=== PATIENT | male | born 2000 | race Caucasian/White ===

== ENCOUNTER 2018-02-04 09:59 | Inpatient (IN) | payer BC, OTHER ==
[2018-02-04 11:12] LABS: ABS Basophils 0.1 10^3/ul (0-0.2); ABS Eosinophils 0.1 10^3/ul (0-0.6); ABS Lymphocytes 1.8 10^3/ul (1.0-4.8); ABS Monocytes 0.5 10^3/ul (0-0.8); ABS Neutrophils 4.3 10^3/ul (1.5-7.7); ABS Nucleated RBC 0 10^3/ul; Eosinophil % 1.6 % (0-6); Hematocrit 44 % (42-52); Hemoglobin 15.4 g/dl (14.0-18.0); Lymphocyte % 26.3 % (25-47); Mean Corpuscular HGB Conc 35 g/dl (31-36); Mean Corpuscular Hemoglobin 28 pg (27-31); Mean Corpuscular Volume 81 fL (80-94); Mean Platelet Volume 7.8 um3 (7.4-10.4); Nucleated Red Blood Cells % 0.3; Platelet Count 219 10^3/ul (150-450); Red Cell Distribution Width 14 % (10.5-15); White Blood Count 6.8 10^3/ul (3.5-10.8)
[2018-02-04 11:30] LABS: EGFR Non-African American 85.3 (>60)
[2018-02-04 12:54] LABS: Urine Appearance Clear; Urine Blood Negative (Negative); Urine Color Yellow; Urine Ketones Negative (Negative); Urine Protein Negative (Negative); Urine Specific Gravity 1.014 (1.010-1.030); Urine Urobilinogen Negative (Negative)
[2018-02-04] MEDS ORDERED: Haloperidol TAB* 5 MG PO ONE (13:56)
[2018-02-04] MEDS ORDERED: LORazepam TAB(*) 1 MG PO ONE (13:56)
[2018-02-04] MEDS ORDERED: Haloperidol INJ IV/IM* 5 MG/ML AMP IM ONE (14:08)
[2018-02-04] MEDS ORDERED: LORazepam INJ* 2 MG/ML 1 ML VIAL IM ONE (14:08)
[2018-02-04] MEDS ORDERED: Al Hydrox/Mg Hydrox/Simet LIQ* 30 ML UDC PO PRN (15:03)
[2018-02-04] MEDS ORDERED: Acetaminophen TAB* 325 MG PO PRN (15:03)
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
[2018-02-05] MEDS: Vitamin THERAPEUTIC TAB PO SCH (11:00)
[2018-02-05] MEDS ORDERED: Haloperidol TAB* 5 MG PO ONE (12:37)
[2018-02-05] MEDS ORDERED: LORazepam TAB(*) 1 MG PO ONE (12:40)
[2018-02-05] MEDS ORDERED: Benztropine TAB* 1 MG ONE (12:43)
[2018-02-05] MEDS: Benztropine TAB* 1 MG PO SCH (12:55)
[2018-02-05] MEDS ORDERED: ARIPiprazole TAB* 5 MG PO ONE (14:45)
[2018-02-05] MEDS ORDERED: QUEtiapine TAB* 25 MG PO PRN (18:22)
[2018-02-05] MEDS ORDERED: Haloperidol TAB* 5 MG PO PRN (18:24)
[2018-02-05] MEDS ORDERED: Benztropine TAB* 1 MG PO PRN (18:26)
[2018-02-05] MEDS: LORazepam TAB(*) 1 MG PO SCH ×2 (18:29→21:12)
[2018-02-05] MEDS ORDERED: QUEtiapine TAB* 100 MG PO SCH (21:00)
[2018-02-05] MEDS: QUEtiapine TAB* 25 MG PO SCH (21:12)
[2018-02-06] MEDS: Benztropine TAB* 1 MG PO SCH ×3 (08:53→20:37)
[2018-02-06] MEDS: LORazepam TAB(*) 1 MG PO SCH ×3 (08:54→20:37)
[2018-02-06] MEDS: Vitamin THERAPEUTIC TAB PO SCH (08:54)
[2018-02-06] MEDS ORDERED: diPHENhydraMINE IV* 50 MG/ML 1 ml VIAL (BENADRYL) IM ONE ×2 (12:48→13:57)
[2018-02-06] MEDS ORDERED: diPHENhydraMINE PO* 25 MG PO ONE (12:54)
[2018-02-06] MEDS ORDERED: ARIPiprazole TAB* 5 MG PO ONE (12:57)
[2018-02-06] MEDS ORDERED: diPHENhydraMINE PO* 25 MG ONE (12:59)
[2018-02-06] MEDS ORDERED: ARIPiprazole TAB* 5 MG ONE (13:01)
[2018-02-06] MEDS ORDERED: Benzocaine/Menthol LOZ* 1 LOZENGE ONE (13:45)
--- NOTE | 2018-02-06 14:37 | PN ---
Subjective - Subjective Subjective: Psychiatric Attending Progress Note: Patient continues to exhibit bizarre behavior, disorganized thinking, odd relatedness, suspiciousness and hypervigilance. He can be verbally hostile and menacing with as associated incongruent affect. Example is yesterday late afternoon, patient put his face close to staff members face and held door to unit open, preventing staff member from closing the door to the unit. Patient exhibited hostile tone as he held door open, yet was smiling while asking the staff "why do you need to close the door?" patient developed discomfort swallowing today and involuntary movement of his jaw. He was given 25 mg of benadryl po with no real effect. subsequently I ordered benadryl 25 mg IM with good effect. dystonic symptoms abated complettely. MSE: patient did sleep 4 hours yesterday evening followed by 6 hours overnight. Patient refused HS Medications (ativan and seroquel) Today patient displays psychomotor acceleration. He is hyerverbal. He has been pacing floor while accosting people and attemting to shake hands with everyone he approaches,. He makes superficial often irrelevant comments. He is oddly related. His mood varies from elevated, to hostile. His affect is bizarre and often incongruent Thought process lacks goal direction with irrelevant and at times illogical resonses. patient denies AH,VH, SI,HI. patient is alert and oriented to month, year and date. His insight and judgment are grossly impaired. Met with father today. Father presents as highly upset and in significant psychological distress related to his son's condition and his admission to hospital. Elly and his Father both highly defended, and highly worried about each other's welfare to the point of being on verge of tears. Elly was asked to leave so Father and I could chat alone. Elly continued to return to the room. He was becoming agitated. It was unclear whether he was concerned about his father who was visibly upset or was separation anxious. each time Elly interrupted father would become more visibly upset and would embrace Elly in an attempt to reassure him that he (father) was ok. This went on for some time. Father subsequently shared that both he and his are in significant distress with regard to Elly's hospital admission. He shared that he and his kept hoping that the odd behaviors over past month would subside, and believing that the behaviors were related to LSD or mushroom use. The behaviors would get better for brief periods but then would return. They continued to believe that "we could manage him until the got better". Father shared that he spent 20 years working with violent offenders who had psychiatric illness and bringing such people to hospitals or to fci. He acknowledged that having his son here has reactivated traumatic memories that he has from his time as a custody officer. after much discussion, I believe that he understands that Elly's symptoms could represent drug induced psychosis, but also understands that his symptoms could represent first break of a mood disorder or psychotic disorder. Father was educated about medications which I am prescribing and indicated that he was in agreement with the administration of these medications as they would help with remission of psychotic symptoms FATHER SHARED ADDITIONAL HISTORY: During last two years of high school, Elly exhibited long period of time when he displayed increased goal directed activity and grandiose thoughts. during this time Elly believed and according to father "we also believed because he was so convincing" that he would someday become the President of the [employer]. During this time, Elly would read for many hours daily at times late at night. the books were related to international law. Impression: patient's pattern of psychotic symptoms, past depressive syndrome, early episode in high school of grandiose delusions and increased goal directed behaviors raise suspicion that he may infact have schizoaffective illness. at the present time his exact diagnosis can not be definitively known Diagnosis: unspecified psychotic disorder rule out drug induced psychosis (patient's father reports he ate 3 poppy seed bagels prior to being admitted which would explain positive urine test for opiates) rule out schizaffective disorger rule out bipolar disorder Plan: Increase Abilify to 10 mg po QAM in AM Serouqel 50 mg qhs continue ativan 1 mg TID will change haldol to 3 mg with ativan 1 mg and cogentin 1 mg po Q4 h prn agitation or psychosis MRI of head and EEG will be ordered next week after I have had a chance to inform family and patient about the reason for ordering these tests. Plan - Plan Treatment Plan: Name: ELLY IBARRA Birthdate: 2000 [id number] Medications: Current Medications Acetaminophen (Tylenol Tab*) 650 mg PO Q4H PRN PRN Reason: PAIN or TEMP > 101 F Al Hydrox/Mg Hydrox/Simethicone (Maalox Plus*) 30 ml PO Q4H PRN PRN Reason: INDIGESTION Benztropine Mesylate (Cogentin Tab*) 1 mg PO Q4H PRN PRN Reason: agitation/psychosis Benztropine Mesylate (Cogentin Tab*) 1 mg PO TID@,16, [facility] Diphenhydramine HCl (Benadryl Po*) 25 mg PO BID [facility] Haloperidol (Haldol Tab*) 5 mg PO Q4H PRN PRN Reason: agitation/psychosis Lorazepam (Ativan Tab(*)) 1 mg PO TID@,, [facility] Last Admin: 02/06/18 08:54 Dose: 1 mg Multivitamins (Theragran Tab*) 1 tab PO DAILY [facility] Last Admin: 02/06/18 08:54 Dose: 1 tab Quetiapine Fumarate (Seroquel Tab*) 50 mg PO BEDTIME [facility] Last Admin: 02/05/18 21:12 Dose: Not Given Quetiapine Fumarate (Seroquel Tab*) 50 mg PO BEDTIME PRN PRN Reason: insomnia
[2018-02-06] MEDS ORDERED: Haloperidol TAB* 1 MG PO PRN (17:13)
[2018-02-06] MEDS: diPHENhydraMINE PO* 25 MG PO SCH (20:35)
[2018-02-06] MEDS: QUEtiapine TAB* 25 MG PO SCH (20:38)
[2018-02-07] MEDS: ARIPiprazole TAB* 5 MG PO SCH (09:03)
[2018-02-07] MEDS: Vitamin THERAPEUTIC TAB PO SCH (09:04)
[2018-02-07] MEDS: LORazepam TAB(*) 1 MG PO SCH ×3 (09:04→21:32)
[2018-02-07] MEDS: diPHENhydraMINE PO* 25 MG PO SCH ×2 (09:04→21:29)
[2018-02-07] MEDS: Benztropine TAB* 1 MG PO SCH ×3 (09:06→21:31)
--- NOTE | 2018-02-07 16:06 | PN ---
Subjective - Subjective Date of Service: 02/07/18 Service Type: 41202 Hosp care 15 min low complexity Subjective: Elly actually wanted to see me when he saw me. But when we started conversation he became guarded and repeatedly questioned why I want to know anything about him. Reported that he has been doing LSD/ other psycodalics off and on and had similar but less intense symptoms. he was admitted befor but wouldn't disclose when and where. This time gave him some drug filled gums against his will. Wants to go outside for a walk which was declined as he is not ready yet and is an elopment risk. Objective - Appearance Appearance: Healthy Appearing, Thin Framed Dysmorphic Features: No Hygiene: Normal Grooming: Fairly Well Kept - Behavior Psychomotor Activities: Normal Exhibits Abnormal Movement: No - Attitude and Relatedness Attitude and Relatedness: Superficially Cooperative Eye Contact: Good - Speech Quality: Unpressured Latencies: Normal Quantity: Appropriate - Mood Patient's Decription of Mood: "Fine" - Affect Observed Affect: Non-labile - Thought Process Patient's Thought Process: Coherent, Circumstantial Thought Content: No Passive Wish, No Suicidal Planning, No Homicidal Ideation, No Paranoid Ideation - Sensorium Experiencing Hallucinations: No, Sensorium is Clear Type of Hallucinations: Visual: No, Auditory: No, Command: No - Level of Consciousness Level of Consciousness: Alert Orientation: Yes Intact, Yes Orientated to Time, Yes Orientated to Place, Yes Orientated to Person - Impulse Control Impulse Control: Tenuous - Insight and Judgement Insight and Judgement: Impaired - Group Participation Particating in Group Activities: Yes - Medication Management Medication Management Adherence: Yes Assessment - Assessment Merits Inpatient Hospitalization: For Immediate Safety, For Stabilization, Pending Safe DC Plan Plan - Plan Treatment Plan: Name: ELLY IBARRA Birthdate: 2000 [id number] Continued Medication Management: Continue Outpt Medication Medications: Current Medications Acetaminophen (Tylenol Tab*) 650 mg PO Q4H PRN PRN Reason: PAIN or TEMP > 101 F Al Hydrox/Mg Hydrox/Simethicone (Maalox Plus*) 30 ml PO Q4H PRN PRN Reason: INDIGESTION Aripiprazole (Abilify Tab*) 10 mg PO DAILY [facility] Last Admin: 02/07/18 09:03 Dose: 10 mg Benztropine Mesylate (Cogentin Tab*) 1 mg PO Q4H PRN PRN Reason: agitation/psychosis Benztropine Mesylate (Cogentin Tab*) 1 mg PO TID@,, [facility] Last Admin: 02/07/18 15:44 Dose: 1 mg Diphenhydramine HCl (Benadryl Po*) 25 mg PO BID [facility] Last Admin: 02/07/18 09:04 Dose: 25 mg Haloperidol (Haldol Tab*) 3 mg PO Q4H PRN PRN Reason: agitation/psychosis Lorazepam (Ativan Tab(*)) 1 mg PO TID@,, [facility] Last Admin: 02/07/18 15:43 Dose: 1 mg Multivitamins (Theragran Tab*) 1 tab PO DAILY [facility] Last Admin: 02/07/18 09:04 Dose: 1 tab Quetiapine Fumarate (Seroquel Tab*) 50 mg PO BEDTIME [facility] Last Admin: 02/06/18 20:38 Dose: 50 mg Quetiapine Fumarate (Seroquel Tab*) 50 mg PO BEDTIME PRN PRN Reason: insomnia - Discharge Plan Discharge Plan: Drug/Alcohol Rehab
[2018-02-07] MEDS: QUEtiapine TAB* 25 MG PO SCH (21:29)
[2018-02-08] MEDS: ARIPiprazole TAB* 5 MG PO SCH (08:22)
[2018-02-08] MEDS: Vitamin THERAPEUTIC TAB PO SCH (08:22)
[2018-02-08] MEDS: Benztropine TAB* 1 MG PO SCH ×3 (08:23→21:50)
[2018-02-08] MEDS: diPHENhydraMINE PO* 25 MG PO SCH ×2 (08:23→21:50)
[2018-02-08] MEDS: LORazepam TAB(*) 1 MG PO SCH ×3 (08:23→21:50)
[2018-02-08] MEDS: QUEtiapine TAB* 25 MG PO SCH (21:51)
[2018-02-09] MEDS: Benztropine TAB* 1 MG PO SCH ×2 (09:08→21:18)
[2018-02-09] MEDS: ARIPiprazole TAB* 5 MG PO SCH (09:08)
[2018-02-09] MEDS: LORazepam TAB(*) 1 MG PO SCH (09:09)
[2018-02-09] MEDS: diPHENhydraMINE PO* 25 MG PO SCH ×2 (09:09→21:18)
[2018-02-09] MEDS: Vitamin THERAPEUTIC TAB PO SCH (09:09)
--- NOTE | 2018-02-09 11:22 | PN ---
MHU: Group Therapy Note - Service Type Service Type: 62535 Group Psychotherapy - Cognitive Behavioral Therapy (CBT): Patient presents with high volume of speech that impresses as being coherent within the context of self-report, but is tangential and off topic in group context. Concerns regarding disorganization of thought are apparent.
--- NOTE | 2018-02-09 11:53 | PN ---
Subjective - Subjective Subjective: Psychiatric Progress Note: met with mother and Lucase. Mother's history confirms presence of increased goal directed behavior(reading international law books), grandiosity (belief that he would become president educational institution) back in high school. mother reports that she doesnt feel he was manic in high school but prone to be mathew and did have hypomanic periods when he had inflated self view, was more talkative and energetic. agrees that he had first severe depressive episode in fall after He and girlfriend broke up. He was very sad, isolated in room, stopped attending classes, social withdrawn,finished semester but failed two classes. never was psychotic or suicidal during this depressive period. subsequently, decided to move to [place]. [place] [facility] [place] [facility]. got a job in October. end of November used mushrooms. was talking oddly, not making sense. religiously preoccupied. went home to [place] for weekend. subsequentlywas giving a sermon to his friends about spirits, postive energy and was hyperreligious. upon returning home, prior to getting on bus, he was given "mint" by group of friends he was partying with. This was likely LSD. He subsequently took bus home to [facility] and was delusional, confused and bizarre. called parents in [place] to tell them he was lost. brother [facility] him [facility]. that occurred first week in December. since that time psychosis was waxing and waning with paranoia, psychomotor slowing, thought disorder, grandiose statement, insomnia x 5 or more days, not eating well. after 3 weeks they finally went and got him and brought him home to take him t hospital as he wasnt getting better. over weekend, patient attended all groups, compliant with medication, slelpt 6 hours per night, good appetite. saw parents on weekends. mental status much improved. speech normal volume. still increased rate. still distractible. no further periods of agitation. bizarre pauses and irrelevant phrases have remitted completely. thought processes much more logiical, relevant. more organized and goal directed. mood: more stable, less labile. TC denies SI,HI, AH,VH continues to talk about becoming a leader of a positive social movement to make a positive change in the world. believes he will be the president someday and intends to write a book attempts to rationalize and minimize abnormal symptoms which resulted in him being hospitalized. Alert and Fully oriented in all 5 spheres. short term memory impaired (still unable to give me time line for the events which occurred prior to has admission. insight partial judgment fair but improved. Imrpession: Bipolar Disorder I most recent epiode manic with psychotic features. substance induced psychosis Plan: Increase abilify to 15 mg daily for treatment of bipolar I acute and maintenance increase seroquel to 100 mg qhs for inadequate duration of sleep (6 hours) decrease ativan to 0.5 mg BId continue ativan 1 mg qhs MRI of head without contrast in AM EEG both of above studies will be tomorrow Plan - Plan Treatment Plan: Name: ELLY IBARRA Birthdate: 2000 [id number] Medications: Current Medications Acetaminophen (Tylenol Tab*) 650 mg PO Q4H PRN PRN Reason: PAIN or TEMP > 101 F Al Hydrox/Mg Hydrox/Simethicone (Maalox Plus*) 30 ml PO Q4H PRN PRN Reason: INDIGESTION Aripiprazole (Abilify Tab*) 10 mg PO DAILY [facility] Last Admin: 02/09/18 09:08 Dose: 10 mg Benztropine Mesylate (Cogentin Tab*) 1 mg PO Q4H PRN PRN Reason: agitation/psychosis Benztropine Mesylate (Cogentin Tab*) 1 mg PO TID@,,21 [facility] Last Admin: 02/09/18 09:08 Dose: 1 mg Diphenhydramine HCl (Benadryl Po*) 25 mg PO BID [facility] Last Admin: 02/09/18 09:09 Dose: 25 mg Haloperidol (Haldol Tab*) 3 mg PO Q4H PRN PRN Reason: agitation/psychosis Lorazepam (Ativan Tab(*)) 1 mg PO TID@,,21 [facility] Last Admin: 02/09/18 09:09 Dose: 1 mg Multivitamins (Theragran Tab*) 1 tab PO DAILY [facility] Last Admin: 02/09/18 09:09 Dose: 1 tab Quetiapine Fumarate (Seroquel Tab*) 50 mg PO BEDTIME [facility] Last Admin: 02/08/18 21:51 Dose: 50 mg Quetiapine Fumarate (Seroquel Tab*) 50 mg PO BEDTIME PRN PRN Reason: insomnia
[2018-02-09] MEDS ORDERED: LORazepam TAB(*) 1 MG PO PRN (15:29)
[2018-02-09] MEDS: LORazepam TAB(*) 0.5 MG PO SCH (16:17)
[2018-02-09] MEDS ORDERED: LORazepam TAB(*) 1 MG PO SCH (21:00)
[2018-02-09] MEDS: QUEtiapine TAB* 25 MG PO SCH (21:22)
[2018-02-10] MEDS: ARIPiprazole TAB* 5 MG PO SCH (09:06)
[2018-02-10] MEDS: Vitamin THERAPEUTIC TAB PO SCH (09:06)
[2018-02-10] MEDS: Benztropine TAB* 1 MG PO SCH ×2 (09:08→20:56)
[2018-02-10] MEDS: LORazepam TAB(*) 0.5 MG PO SCH ×2 (09:08→16:58)
--- NOTE | 2018-02-10 10:42 | PN ---
Subjective - Subjective Subjective: Psychiatric Attending Progress Note: Met with patient for 45 min. interview. slept 7 hours last night. duration of sleep improved but remains suboptimal. Mental status shows some improvement (bizarre behavior and speech, latent response time, agitation, perseveration have remitted). That is, patient's psychotic symptoms have responded well to Abilify which is currently at 15 mg daily. However, patient continues with moderately severe manic symptoms including flight of ideas, racing thoughts, hyperverbal, inflated self image, ideas of grandeur, suboptimal sleep, distractibility, irritable and expansive mood. overall, patient's insight has improved. for the first time since admission patient told me that he does suffer from mental illness. He told me that he does feel he has bipolar disorder. He endorsed racing thoughts, disorganized thinking, difficulty keeping his thoguhts organized. Talked about break up with girlfriend. mood was labile in session. patient shifted from tearful to irritible to hypomanic. Thought content : continues to be preoccupied with friend who allegedly gave him a mint two weeks ago which he reports must have been an unknown street drug. patient and family believe that subsequent deterioration in Marvin's mental status with incoherence, paranoia, bizarre behavior leading to current hospital stay was related to this ingestion. Discussed persistence of manic symptoms with Marvin. He gave informed consent to begin taking depakote to target mood instability (vinicius) short term side effects, risks and benefits exlained. Objective - Appearance Appearance: Well Developed/Nourished Dysmorphic Features: No Hygiene: Normal Grooming: Well Kept - Behavior Psychomotor Activities: Abnormal-Increased - Attitude and Relatedness Attitude and Relatedness: Guarded Eye Contact: Fair - Speech Quality: Pressured Latencies: Normal Quantity: Copious - Mood Patient's Decription of Mood: "Great" - Affect Observed Affect: Labile - expansive Affect Consistent with: Euphoria - Thought Process Patient's Thought Process: Filght of Ideas Thought Content: No Passive Wish, No Suicidal Planning, No Homicidal Ideation, No Paranoid Ideation - Sensorium Experiencing Hallucinations: No, Sensorium is Clear Type of Hallucinations: Visual: No, Auditory: No, Command: No - Level of Consciousness Level of Consciousness: Alert Orientation: Yes Intact, Yes Orientated to Time, Yes Orientated to Place - Impulse Control Impulse Control: Tenuous - Insight and Judgement Insight and Judgement: Fair - Group Participation Particating in Group Activities: Yes - Medication Management Medication Management Adherence: Yes Assessment - Assessment Clinical Impression: 17 year old with bipolar I and recent hallucinogen abuse (cannabis, mushrooms) presentes with subacute presentation (4 to 5 week duration) of bizarre behavior and symptoms consistent with a manic episode with psychotic features. psychotic symptoms have responded wellt to abilify. patient sleeping better with seroquel and ativan. Manic symptoms slightly improved but patient continue with insomnia, mood lability, grandiosity, paranoia with regard to having been poisoned by friend, racing thoughts, rapid speech. patient remains gravely disabled and in need of stabalization, medication titration, on inpatient psychiatric unit. Plan - Plan Treatment Plan: Plan: Ativan 0.5 mg BID Increase Ativan at bed to 2 mg qhs Start Depakote ER 750 mg qhs with snack for acute and maintenance treatment of vinicius. Abilify 15 mg QAM Seroquel 100 mg qhs Continued Medication Management: Different Medication Medications: Current Medications Acetaminophen (Tylenol Tab*) 650 mg PO Q4H PRN PRN Reason: PAIN or TEMP > 101 F Al Hydrox/Mg Hydrox/Simethicone (Maalox Plus*) 30 ml PO Q4H PRN PRN Reason: INDIGESTION Aripiprazole (Abilify Tab*) 10 mg PO DAILY [facility] Last Admin: 02/10/18 09:06 Dose: 10 mg Benztropine Mesylate (Cogentin Tab*) 1 mg PO Q4H PRN PRN Reason: agitation/psychosis Benztropine Mesylate (Cogentin Tab*) 1 mg PO BID@ [facility] Last Admin: 02/10/18 09:08 Dose: 1 mg Diphenhydramine HCl (Benadryl Po*) 25 mg PO BEDTIME [facility] Last Admin: 02/09/18 21:18 Dose: 25 mg Lorazepam (Ativan Tab(*)) 1 mg PO BEDTIME [facility] Last Admin: 02/09/18 21:19 Dose: 1 mg Lorazepam (Ativan Tab(*)) 0.5 mg PO BID@,16 [facility] Last Admin: 02/10/18 09:08 Dose: 0.5 mg Lorazepam (Ativan Tab(*)) 1 mg PO BEDTIME PRN PRN Reason: INSOMNIA Multivitamins (Theragran Tab*) 1 tab PO DAILY [facility] Last Admin: 02/10/18 09:06 Dose: 1 tab Quetiapine Fumarate (Seroquel Tab*) 100 mg PO BEDTIME [facility] Last Admin: 02/09/18 21:22 Dose: 100 mg - Discharge Plan Discharge Plan: Outpatient Follow Up Outpatient Program: [facility]
--- NOTE | 2018-02-10 11:30 | PN ---
MHU: Group Therapy Note - Service Type Service Type: 04111 Group Psychotherapy - Cognitive Behavioral Therapy (CBT): Patient presents with high volume of speech that impresses as being coherent within the context of self-report, but is tangential and off topic in group context. Concerns regarding disorganization of thought are apparent.
--- NOTE | 2018-02-10 12:05 | RAD ---
HISTORY: first onset psychosis COMPARISONS: None TECHNIQUE: The following sequences were obtained of the head: Sagittal T1-weighted images, axial T2-weighted images, axial FLAIR images, axial susceptibility weighted images, axial T1-weighted images. Additionally, axial diffusion-weighted images were obtained with calculated apparent diffusion coefficients. FINDINGS: HEMORRHAGE/INFARCT: There is no hemorrhage or acute infarct. MASSES/SHIFT: There is no mass or shift. EXTRA-AXIAL SPACES/MENINGES: There are no extra-axial fluid collections. SULCI AND VENTRICLES: The sulci and ventricles are normal in size and position for the patient's stated age. CEREBRUM: There are no focal parenchymal abnormalities. BRAINSTEM: There are no focal parenchymal abnormalities. CEREBELLUM: There is a well-defined focus of elevated T2/FLAIR signal within the left superior cerebellum. This is best seen on axial image 9, and measures 1 cm in diameter. The cerebellar tonsils are normal in size and position. SELLA: The sella is normal. PINEAL: The pineal region is clear. CP ANGLE/TEMPORAL BONES: The labyrinthine structures are grossly normal. VESSELS: Normal flow-voids are noted within the visualized vertebral vasculature. DIFFUSION ABNORMALITIES: There are no diffusion abnormalities. PARANASAL SINUSES/MASTOIDS: The paranasal sinuses are clear. ORBITS: The orbits are unremarkable. BONES AND SOFT TISSUE: No bone or soft tissue abnormalities are noted. OTHER: None IMPRESSION: ILL-DEFINED FOCUS OF ELEVATED T2/FLAIR SIGNAL WITHIN THE LEFT SUPERIOR CEREBELLUM. THE DIFFERENTIAL INCLUDES A LOW-GRADE GLIOMA. RECOMMEND FURTHER EVALUATION WITH CONTRAST-ENHANCED MRI OF THE BRAIN.
[2018-02-10] MEDS: diPHENhydraMINE PO* 25 MG PO SCH (20:50)
[2018-02-10] MEDS: QUEtiapine TAB* 25 MG PO SCH (20:53)
[2018-02-10] MEDS: LORazepam TAB(*) 1 MG PO SCH (20:57)
[2018-02-10] MEDS ORDERED: Divalproex ER TAB(*) 250 MG PO SCH (21:00)
[2018-02-11] MEDS ORDERED: ARIPiprazole TAB* 5 MG PO SCH (09:00)
[2018-02-11] MEDS: Multivitamins/Minerals TAB PO SCH (09:55)
[2018-02-11] MEDS: Benztropine TAB* 1 MG PO SCH ×2 (09:57→21:10)
[2018-02-11] MEDS: LORazepam TAB(*) 0.5 MG PO SCH (09:58)
[2018-02-11 15:15] LABS: EGFR Non-African American 59.8 (>60)
--- NOTE | 2018-02-11 15:20 | PN ---
Subjective - Subjective Subjective: Psychiatric Attending Progress Note Patient refused Depakote last night despite conversatin yesterday during which he agreed to take the medication for bipolar vinicius. despite poor insight overall he did endorse racing thoughts and he gave verbal consent When I asked him about this today, he did not remember the conversation. he is clearly confusional (called depakote "klonopin" and insisted that nurse offered him this medication today which is not the case). Review of staff notes reveal that Marvin's functioning on the unit and his mental status in past 24 hours have deteriorated. manic symptoms have gone from moderate to severe. speech is hyperverbal. Patient is intrusive, socially inappropriate, and has poor boundaries as shown by approaching patients, staff, and visitors of other patients (during visiting hours) and attempting to engage in random conversation. thought process is at times illogic " I was dying before because I couldnt support or take care of my family". patient resposnes are often irrelevant, or tangential to topic being discussed. Marvin continues to perseverate about discharge. During family meeting, despite numerous attempts to explain the reason why he needs more time int he hospital, he continued to argue that he felt great, and was ready to go home. His insight is superficial (agrees that he has bipolar disorder but is unable to identify the behaviors and thoughts which he currently has as symptoms of vinicius). He continues to have mood lability with both irritability and inflated/euphoric components. He continues to have inflated sense of self and delusions of grandeur (he will be president, he will become a doctor). He also believes that signs are being left which reveal message meant for him by a higher power. He picked up peiasael and insisted that it was a sign, a message that was meant for him. cogntive impairment evident from inability to sustain focus to complete MMPI for more than one or two minutes. poor short term memory, difficulty learning new material (could not remember discussion from last night about depakote). CHECKED LOG AND PATIENT SLEPT FROM 11 PM UNTIL 7 AM (8 HOURS) Family Meeting today with mother: patient was fidgety, disorganized, tangential during meeting. He perseverated on discharge. He was unable to let it go even with multiple attempts by mother, myself and Saadia TERRY to help him understand why he needed to stay longer. Patient revealed that he had some paranoid thoughts that maybe it wasn't our intention to ever discharge him home. He was reassured that this wasnt the case. MRI WITHOUT CONTRAST: NORMAL STUDY WITH EXCEPTION OF 1 CM AREA OF INCERASED T2 signal in left superior temporal cerebellum FOLLOW UP MRI WITH CONTRAST WAS RECOMMENDED Impression: Hallucinogen abuse Cannabis Use Disorder RULE OUT bipolar disorder I current episode manic with psychotic features VERSUS SCHIZOAFFECTIVE DISORDER BIPOLAR TYPE RULE OUT CEREBELLAR MASS Plan: EEG to be done today f/u MRI with contrast to be completed in AM (bmp to be drawn today for creatinine). informed mother and patient of need for f/u MRI and they consent to procedure. Start Depakote ER 750 mg qhs tonight Increase Abilify to 20 mg qam IF not improving in a few days will change Abilify to different antipsychotic Continue ativan, seroquel, benadryl and cogentin unchanged. Assessment - Assessment Clinical Impression: 17 year old with bipolar I and recent hallucinogen abuse (cannabis, mushrooms) presentes with subacute presentation (4 to 5 week duration) of bizarre behavior and symptoms consistent with a manic episode with psychotic features. psychotic symptoms have responded wellt to abilify. patient sleeping better with seroquel and ativan. Manic symptoms slightly improved but patient continue with insomnia, mood lability, grandiosity, paranoia with regard to having been poisoned by friend, racing thoughts, rapid speech. patient remains gravely disabled and in need of stabalization, medication titration, on inpatient psychiatric unit. Plan - Plan Treatment Plan: Plan: Ativan 0.5 mg BID Increase Ativan at bed to 2 mg qhs Start Depakote ER 750 mg qhs with snack for acute and maintenance treatment of vinicius. Abilify 15 mg QAM Seroquel 100 mg qhs Medications: Current Medications Acetaminophen (Tylenol Tab*) 650 mg PO Q4H PRN PRN Reason: PAIN or TEMP > 101 F Al Hydrox/Mg Hydrox/Simethicone (Maalox Plus*) 30 ml PO Q4H PRN PRN Reason: INDIGESTION Aripiprazole (Abilify Tab*) 15 mg PO DAILY [facility] Last Admin: 02/11/18 09:55 Dose: 15 mg Benztropine Mesylate (Cogentin Tab*) 1 mg PO Q4H PRN PRN Reason: agitation/psychosis Benztropine Mesylate (Cogentin Tab*) 1 mg PO BID@ [facility] Last Admin: 02/11/18 09:57 Dose: 1 mg Diphenhydramine HCl (Benadryl Po*) 25 mg PO BEDTIME [facility] Last Admin: 02/10/18 20:50 Dose: 25 mg Divalproex Sodium (Depakote Er Tab(*)) 750 mg PO BEDTIME [facility] Last Admin: 02/10/18 20:51 Dose: Not Given Lorazepam (Ativan Tab(*)) 0.5 mg PO BID@ [facility] Last Admin: 02/11/18 09:58 Dose: 0.5 mg Lorazepam (Ativan Tab(*)) 1 mg PO BEDTIME PRN PRN Reason: INSOMNIA Last Admin: 02/10/18 20:56 Dose: 1 mg Lorazepam (Ativan Tab(*)) 2 mg PO BEDTIME [facility] Last Admin: 02/10/18 20:57 Dose: Not Given Multivitamins/Minerals (Theragran/Minerals Tab*) 1 tab PO DAILY [facility] Last Admin: 02/11/18 09:55 Dose: 1 tab Quetiapine Fumarate (Seroquel Tab*) 100 mg PO BEDTIME [facility] Last Admin: 02/10/18 20:53 Dose: 100 mg
[2018-02-11] MEDS: Divalproex DR TAB(*) 250 MG PO SCH ×2 (17:48→21:14)
[2018-02-11] MEDS: LORazepam TAB(*) 1 MG PO SCH ×2 (17:49→21:13)
[2018-02-11] MEDS: QUEtiapine TAB* 25 MG PO SCH (21:12)
[2018-02-11] MEDS: diPHENhydraMINE PO* 25 MG PO SCH (21:14)
[2018-02-12] MEDS ORDERED: ARIPiprazole TAB* 20 MG PO SCH (09:00)
[2018-02-12] MEDS: Divalproex DR TAB(*) 250 MG PO SCH ×3 (09:32→21:02)
[2018-02-12] MEDS: Benztropine TAB* 1 MG PO SCH ×2 (09:32→21:02)
[2018-02-12] MEDS: Multivitamins/Minerals TAB PO SCH (09:32)
[2018-02-12] MEDS: LORazepam TAB(*) 1 MG PO SCH ×3 (09:33→21:02)
[2018-02-12 10:32] LABS: ABS Basophils 0 10^3/ul (0-0.2); ABS Eosinophils 0.2 10^3/ul (0-0.6); ABS Lymphocytes 1.7 10^3/ul (1.0-4.8); ABS Monocytes 0.5 10^3/ul (0-0.8); ABS Neutrophils 4.1 10^3/ul (1.5-7.7); ABS Nucleated RBC 0 10^3/ul; Eosinophil % 3.2 % (0-6); Hematocrit 47 % (42-52); Lymphocyte % 25.8 % (25-47); Mean Corpuscular HGB Conc 34 g/dl (31-36); Mean Corpuscular Hemoglobin 28 pg (27-31); Mean Corpuscular Volume 82 fL (80-94); Mean Platelet Volume 8.2 um3 (7.4-10.4); Nucleated Red Blood Cells % 0.1; Platelet Count 235 10^3/ul (150-450); Red Blood Count 5.77 10^6/ul (4.00-5.40); Red Cell Distribution Width 14 % (10.5-15); White Blood Count 6.6 10^3/ul (3.5-10.8)
[2018-02-12 11:16] LABS: EGFR Non-African American 81.1 (>60)
--- NOTE | 2018-02-12 11:26 | PN ---
[facility]: Group Therapy Note - Service Type Service Type: [id number] Group Psychotherapy - Cognitive Behavioral Therapy (CBT): Patient presents with high volume of speech that impresses as being coherent within the context of self-report, but is tangential and off topic in group context. Concerns regarding disorganization of thought are apparent.
[2018-02-12] MEDS ORDERED: Gadoteridol* (CONTRAST) 279.3 MG/ML 10 ML IV ONE (12:27)
--- NOTE | 2018-02-12 12:31 | EEG ---
ELECTROENCEPHALOGRAPHY: DATE OF SERVICE: 02/11/18 DATE READ: 02/12/18 LOCATION: Inpatient psych unit. REFERRING PHYSICIAN: Dr. Vaughan. MEDICATIONS: 1. Acetaminophen. 2. Benztropine. 3. Diphenhydramine. 4. Depakote. 5. Lorazepam. 6. Quetiapine. TIME OF [id number]. INDICATION: Mr. Marvin Powell is a 17-year-old man with history of hallucinogen abuse who has bizarre behavior. EEG was requested to evaluate for epileptiform abnormalities or electrographic seizures. CLINICAL STATE: Awake. REPORT: The waking background showed appropriate organization with clearly defined anterior-posterior voltage and frequency gradients. There was a well- defined posterior dominant rhythm of 12 Hz which was symmetrical and showed normal reactivity. Anteriorly there was an expected pattern of lower voltage, irregular mixed faster frequency. There were also intermittent epochs where there is slowing in the temporal region, but when watching the video, the slowing is accompanied by motion/movement artifact, especially jaw artifact when the patient is talking. Hyperventilation and photic stimulations were not performed. Single electrode EKG showed sinus tachycardia with rate of 110. Throughout the recording, there were no epileptiform discharges or electrographic seizures. CLINICAL IMPRESSION: This is a normal awake EEG. There were no focal or epileptiform abnormalities. A normal interictal EEG does not exclude or support the diagnosis of epilepsy. Clinical correlation is recommended. [id number] #: [id number] MTDD
--- NOTE | 2018-02-12 13:15 | RAD ---
HISTORY: lesion noted on mri. mri w/contrast recommended COMPARISONS: MRI dated February 10, 2018. TECHNIQUE: The following sequences were obtained of the head: Sagittal, axial, coronal T1-weighted images after contrast enhancement with a gadolinium-based intravenous contrast agent. FINDINGS: The study is read in conjunction with the MRI of February 10, 2013. The left cerebellar lesion noted on previous MRI does not demonstrate enhancement. Elsewhere, there is no abnormal enhancement. IMPRESSION: THE LEFT CEREBELLAR LESION NOTED. SUMMARY DOES NOT ENHANCE. THE DIFFERENTIAL INCLUDES LOW-GRADE GLIOMA, AND THE SEQUELA OF PREVIOUS INFECTION OR INFLAMMATION. RECOMMEND ATTENTION ON FOLLOW-UP IMAGING.
--- NOTE | 2018-02-12 15:21 | PN ---
Subjective - Subjective Subjective: Psychiatric Attending Progress Note: Elevation in creatinine yesterday from 1.1 to 1.5 was likely secondary to dehydration (or spurious lab error). After vigorous oral hydration yesterday and during morning today, patient's repeat creatinine today at 1 pm was 1.16 allowing us to complete MRI with contrast which was done this afternoon. Left cerebellar 1 cm lesion did not enhance with contrast. recommendation was follow up study to monitor for interval changes. I called and spoke with Dr. Jackson from Neurology and requested formal consultation. He will review the studies and see patient tomorrow for an evaluation. I have asked him to also contact patient's parents after the consultation as patient's abilify to understand and retain information is impaired and he might not be able to communicate this information to his family. Dr. Jackson agreed to contact family after evaluating patient. I spoke with Marvin's mother by phone to update her on Marvin's progress including results of contrast MRI and upcoming neurology consult. she is aware that lack of enhancement of lesion with contrast is a good sign and that the only intervention required at this time is follow up study. Patient will see Dr. Jackson for monitoring upon discharge. Parents informed that Marvin refused one dose of depakote yesterday as well as blood draw this morning. mother agreed to encourage full compliance when she sees him for visitation today. MSE: met with Marvin for 30 minute interview today. speech remains hyperverbal but less pressured, excessively impressionistic and lacking in detail normal volume. appearance shows fair hygiene. mood: expansive, tad less irritible. denies feeling dysphoric. affect broad range, elevated amplitude. Thought Process: goal directed for a bit and then veers off on a tangent which is irrelevant. flight of ideas present as well. Thought content: Marvin continues to evidence inflated self esteem, grandiosity seems to be coming down ie.today told me maybe he wont be the president but elected to senate or congress. again talked about his great vocabulary. it would appear that some of patient's grandiose presentation is defensive overcompensation for underlying insecurity and his awareness of and distress about emotional lability and cogntive difficulties which he has been struggling with. Marvin shared that he has struggled with attentional and focus problems, disorganization, distractability, for quite some time. additionally he admits to having had depression going back to high school. Patient acknowledges that he was increasingly paranoid in month prior to admission. talked about holding two knives for protection one night while living with in [place] and then had thought of harming self briefly. denies any suicidal ideation since admission here. no AH,VH alert oriented fully. insight partial but improving. judgment: fair continues to be non compliant and fails to understand need for continued hospitalization. Impression: bipolar type I currently manic (flight of ideas, racing thoughts, gransiosity) psychotic features have close to remitted with Abilify. some paranoia still present. doubt schizoaffective but it is possibility. patient continues to meet criteria for inpatient level of care for stabalization hallucinogen abuse cannabis use disorder Plan: will repeat cmp tomorrow. if creatinine remains normal. will restart Abilify at [address] 250 mg TID for treatment of acute ivnicius and maintenance treatment of bipolar disorder seroquel 100 mg qhs Ativan 1 mg BID and 2 mg Qhs neurology consult tomorrow by dr. noemi MARINELLI will set up family meeting not ready for discharge Assessment - Assessment Clinical Impression: 17 year old with bipolar I and recent hallucinogen abuse (cannabis, mushrooms) presentes with subacute presentation (4 to 5 week duration) of bizarre behavior and symptoms consistent with a manic episode with psychotic features. psychotic symptoms have responded wellt to abilify. patient sleeping better with seroquel and ativan. Manic symptoms slightly improved but patient continue with insomnia, mood lability, grandiosity, paranoia with regard to having been poisoned by friend, racing thoughts, rapid speech. patient remains gravely disabled and in need of stabalization, medication titration, on inpatient psychiatric unit. Plan - Plan Treatment Plan: Plan: Ativan 0.5 mg BID Increase Ativan at bed to 2 mg qhs Start Depakote ER 750 mg qhs with snack for acute and maintenance treatment of vinicius. Abilify 15 mg QAM Seroquel 100 mg qhs Medications: Current Medications Acetaminophen (Tylenol Tab*) 650 mg PO Q4H PRN PRN Reason: PAIN or TEMP > 101 F Al Hydrox/Mg Hydrox/Simethicone (Maalox Plus*) 30 ml PO Q4H PRN PRN Reason: INDIGESTION Benztropine Mesylate (Cogentin Tab*) 1 mg PO Q4H PRN PRN Reason: agitation/psychosis Benztropine Mesylate (Cogentin Tab*) 1 mg PO BID@ [facility] Last Admin: 02/12/18 09:32 Dose: 1 mg Diphenhydramine HCl (Benadryl Po*) 25 mg PO BEDTIME [facility] Last Admin: 02/11/18 21:14 Dose: 25 mg Divalproex Sodium (Depakote Dr Tab(*)) 250 mg PO TID@, [facility] Last Admin: 02/12/18 09:32 Dose: 250 mg Lorazepam (Ativan Tab(*)) 1 mg PO BEDTIME PRN PRN Reason: INSOMNIA Last Admin: 02/10/18 20:56 Dose: 1 mg Lorazepam (Ativan Tab(*)) 2 mg PO BEDTIME [facility] Last Admin: 02/11/18 21:13 Dose: 2 mg Lorazepam (Ativan Tab(*)) 1 mg PO BID@ [facility] Last Admin: 02/12/18 09:33 Dose: 1 mg Multivitamins/Minerals (Theragran/Minerals Tab*) 1 tab PO DAILY [facility] Last Admin: 02/12/18 09:32 Dose: 1 tab Quetiapine Fumarate (Seroquel Tab*) 100 mg PO BEDTIME [facility] Last Admin: 02/11/18 21:12 Dose: 100 mg
[2018-02-12] MEDS ORDERED: QUEtiapine TAB* 100 MG PO SCH (21:00)
[2018-02-12] MEDS: diPHENhydraMINE PO* 25 MG PO SCH (21:02)
[2018-02-12 22:29] LABS: Urine Appearance Clear; Urine Blood Negative (Negative); Urine Color Yellow; Urine Ketones Negative (Negative); Urine Protein Negative (Negative); Urine Specific Gravity 1.009 (1.010-1.030); Urine Urobilinogen Negative (Negative)
[2018-02-13 07:19] LABS: EGFR Non-African American 95.2 (>60)
[2018-02-13] MEDS: Benztropine TAB* 1 MG PO SCH ×2 (09:26→20:49)
[2018-02-13] MEDS: Divalproex DR TAB(*) 250 MG PO SCH ×3 (09:26→20:52)
[2018-02-13] MEDS: LORazepam TAB(*) 1 MG PO SCH ×3 (09:27→20:53)
[2018-02-13] MEDS: Multivitamins/Minerals TAB PO SCH (09:27)
--- NOTE | 2018-02-13 12:53 | PN ---
Subjective - Subjective Subjective: Psychiatric Attending Progress Note: Patient is attending groups. seen by Neurologist today. Met with Marvin today x 30 minutes. He remains irritible, superficially cooperative. labile. cries easily. more dysphoric today then previously seen. shows histrionic features including superficial and at times dramatic displays of emotion and speech which is impressionistic and lacking in details. Marvin continues to perseverate about discharge. The majority of the session was spent with Marvin talking about discharge. highly obsessed with discharge. despite our previous discussions about reasons he is not ready for discharge, (medications still being titrated) he was unable to be distracted from this theme. When I asked him to complete MMPI, he attempted to use it as a bargaining tool for me to discharge him. (I'll finish it by friday if you discharge me). underlying paranoia still present (believes that the treatment team has another motive in store for him other than discharge). concentration impaired. serial subtraction of 7 ([id number]...) people in glass houses shouldn't throw stones "if you throw a stone at a glass house the person in the house is going to know who threw it" (attention span very poor, not processing language normally due to severe distractability). short term memory impaired: 2/3 words recalled after 10 min. insight/judgment poor LABS: CMP normal today. CREATININE 1.1 Impression: 17 yo with history of episodic grandiosity and depression admitted 1 week ago due to 4 to 6 week history of psychotic symptoms. patient has shown improvement in mental status with remission of bizarre and disorganized behavior. he continues to have mood lability, grandiosity, impaired social skills, psychomotor acceleration, poverty of thought content, thought disorder (ilogia, tangentiality, irrelevance, rambling), impaired concentration and short term memory. I am increasingly conerned that patient has primary psychotic disorder diagnoses: rule out schizoaffective disorder bipolar type versus bipolar disorder I manic with psychotic symptoms. patient is currently showing dysphoric vinicius. Plan: Increase Seroquel to 300 mg qhs will not restart abilify continue Depakote DR 250 mg TID Loser ativan to 1 mg TID patient to complete MMPI family meeting next week valproic acid level for friday Assessment - Assessment Clinical Impression: 17 year old with bipolar I and recent hallucinogen abuse (cannabis, mushrooms) presentes with subacute presentation (4 to 5 week duration) of bizarre behavior and symptoms consistent with a manic episode with psychotic features. psychotic symptoms have responded wellt to abilify. patient sleeping better with seroquel and ativan. Manic symptoms slightly improved but patient continue with insomnia, mood lability, grandiosity, paranoia with regard to having been poisoned by friend, racing thoughts, rapid speech. patient remains gravely disabled and in need of stabalization, medication titration, on inpatient psychiatric unit. Plan - Plan Treatment Plan: Plan: Ativan 0.5 mg BID Increase Ativan at bed to 2 mg qhs Start Depakote ER 750 mg qhs with snack for acute and maintenance treatment of vinicius. Abilify 15 mg QAM Seroquel 100 mg qhs Medications: Current Medications Acetaminophen (Tylenol Tab*) 650 mg PO Q4H PRN PRN Reason: PAIN or TEMP > 101 F Al Hydrox/Mg Hydrox/Simethicone (Maalox Plus*) 30 ml PO Q4H PRN PRN Reason: INDIGESTION Benztropine Mesylate (Cogentin Tab*) 1 mg PO Q4H PRN PRN Reason: agitation/psychosis Benztropine Mesylate (Cogentin Tab*) 1 mg PO BID@ [facility] Last Admin: 02/13/18 09:26 Dose: 1 mg Diphenhydramine HCl (Benadryl Po*) 25 mg PO BEDTIME [facility] Last Admin: 02/12/18 21:02 Dose: 25 mg Divalproex Sodium (Depakote Dr Tab(*)) 250 mg PO TID@, [facility] Last Admin: 02/13/18 09:26 Dose: 250 mg Lorazepam (Ativan Tab(*)) 1 mg PO BEDTIME PRN PRN Reason: INSOMNIA Last Admin: 02/10/18 20:56 Dose: 1 mg Lorazepam (Ativan Tab(*)) 2 mg PO BEDTIME [facility] Last Admin: 02/12/18 21:02 Dose: 2 mg Lorazepam (Ativan Tab(*)) 1 mg PO BID@ [facility] Last Admin: 02/13/18 09:27 Dose: 1 mg Multivitamins/Minerals (Theragran/Minerals Tab*) 1 tab PO DAILY [facility] Last Admin: 02/13/18 09:27 Dose: 1 tab Quetiapine Fumarate (Seroquel Tab*) 200 mg PO BEDTIME [facility] Last Admin: 02/12/18 21:02 Dose: 200 mg
[2018-02-13] MEDS: diPHENhydraMINE PO* 25 MG PO SCH (20:49)
[2018-02-13] MEDS: QUEtiapine TAB* 100 MG PO SCH (20:53)
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
[2018-02-14] MEDS: Benztropine TAB* 1 MG PO SCH ×2 (09:15→21:04)
[2018-02-14] MEDS: Multivitamins/Minerals TAB PO SCH (09:15)
[2018-02-14] MEDS: LORazepam TAB(*) 1 MG PO SCH ×3 (09:15→21:03)
[2018-02-14] MEDS: Divalproex DR TAB(*) 250 MG PO SCH ×3 (09:15→21:03)
[2018-02-14] MEDS: diPHENhydraMINE PO* 25 MG PO SCH (21:03)
[2018-02-14] MEDS: QUEtiapine TAB* 100 MG PO SCH (21:04)
[2018-02-15] MEDS: Divalproex DR TAB(*) 250 MG PO SCH ×3 (08:58→20:50)
[2018-02-15] MEDS: Multivitamins/Minerals TAB PO SCH (08:58)
[2018-02-15] MEDS: Benztropine TAB* 1 MG PO SCH ×2 (08:58→20:51)
[2018-02-15] MEDS: LORazepam TAB(*) 1 MG PO SCH ×3 (08:58→20:51)
[2018-02-15] MEDS: diPHENhydraMINE PO* 25 MG PO SCH (20:50)
[2018-02-15] MEDS: QUEtiapine TAB* 100 MG PO SCH (20:51)
[2018-02-16 08:46] LABS: ABS Basophils 0.1 10^3/ul (0-0.2); ABS Eosinophils 0.2 10^3/ul (0-0.6); ABS Monocytes 0.4 10^3/ul (0-0.8); ABS Neutrophils 3.3 10^3/ul (1.5-7.7); ABS Nucleated RBC 0 10^3/ul; Eosinophil % 3.2 % (0-6); Hematocrit 46 % (42-52); Hemoglobin 15.4 g/dl (14.0-18.0); Lymphocyte % 33.8 % (25-47); Mean Corpuscular HGB Conc 34 g/dl (31-36); Mean Corpuscular Hemoglobin 28 pg (27-31); Mean Corpuscular Volume 83 fL (80-94); Mean Platelet Volume 7.9 um3 (7.4-10.4); Nucleated Red Blood Cells % 0.2; Platelet Count 192 10^3/ul (150-450); Red Blood Count 5.56 10^6/ul (4.00-5.40); Red Cell Distribution Width 14 % (10.5-15); White Blood Count 5.9 10^3/ul (3.5-10.8)
[2018-02-16] MEDS: Divalproex DR TAB(*) 250 MG PO SCH (08:46)
[2018-02-16] MEDS: Multivitamins/Minerals TAB PO SCH (08:46)
[2018-02-16] MEDS: Benztropine TAB* 1 MG PO SCH (08:47)
[2018-02-16] MEDS: LORazepam TAB(*) 1 MG PO SCH (08:47)
[2018-02-16 10:32] VITALS: BP 126/86
--- NOTE | 2018-02-16 11:39 | PN ---
Subjective - Subjective Subjective: Psychiatric Attending Progress Note: review of nursing report over weekend reveal that patient's behavior was very stable over the weekend. attended groups. had visitation from parents. mood more stable. no periods of agitation. slept through the night with exception of some mid AM awakenings but fell right back to sleep. compliant with medication. MSE: hygiene is adequate. fairly related. Continues to be with impressionistic speech which has little content, continues with sense of entitlement but this appears much more characterological in nature and does not have the quality or intensity of delusions of grandeur. Marvin has impaired social skills. he remains hyperverbal and the content of his speech is impoverished and impressionistic. (ie. talks alot but says very little). tends to use uncommon vocabulary words which at times are used incorrectly. Mood: elevated affect: less lability observed today. TP: perseverates about discharge. organized, logical, circumstantial, TC: entitled, inflated sense of self, no evidence of bizarre behaviors, no delusions, denies AH,VH,SI,HI alert and fully oriented. insight impaired judgment fair. Assessment - Assessment Clinical Impression: 17 year old with bipolar I and recent hallucinogen abuse (cannabis, mushrooms) presentes with subacute presentation (4 to 5 week duration) of bizarre behavior and symptoms consistent with a manic episode with psychotic features. psychotic symptoms have remitted with Seroquel. manic symptoms have mostly remitted with combination of seroquel, ativan and Depakote. Patient has therpeutic depakte level of 86. Plan - Plan Treatment Plan: Plan: d/c ativan 1 mg BId continue ativan 2 mg po QHS Change Depakote DR from 250 mg TId to 250 mg QAM and 500 mg qhs Continue Seroquel IR 300 mg qhs Lower cogentin to 0.5 mg BID Benadryl 25 mg po QHS will have family meeting today as it would be important to hear if parents feel patient is close to his baseline. If so, patient could be discharged tomorrow with follow up at [facility]. Medications: Current Medications Acetaminophen (Tylenol Tab*) 650 mg PO Q4H PRN PRN Reason: PAIN or TEMP > 101 F Al Hydrox/Mg Hydrox/Simethicone (Maalox Plus*) 30 ml PO Q4H PRN PRN Reason: INDIGESTION Benztropine Mesylate (Cogentin Tab*) 1 mg PO Q4H PRN PRN Reason: agitation/psychosis Benztropine Mesylate (Cogentin Tab*) 0.5 mg PO BID@ JERSON Diphenhydramine HCl (Benadryl Po*) 25 mg PO BEDTIME JERSON Last Admin: 02/15/18 20:50 Dose: 25 mg Divalproex Sodium (Depakote Dr Tab(*)) 250 mg PO DAILY JERSON Divalproex Sodium (Depakote Dr Tab(*)) 500 mg PO BEDTIME JERSON Lorazepam (Ativan Tab(*)) 1 mg PO BEDTIME PRN PRN Reason: INSOMNIA Last Admin: 02/10/18 20:56 Dose: 1 mg Lorazepam (Ativan Tab(*)) 2 mg PO BEDTIME JERSON Last Admin: 02/15/18 20:51 Dose: 2 mg Multivitamins/Minerals (Theragran/Minerals Tab*) 1 tab PO DAILY JERSON Last Admin: 02/16/18 08:46 Dose: 1 tab Quetiapine Fumarate (Seroquel Tab*) 300 mg PO BEDTIME JERSON Last Admin: 02/15/18 20:51 Dose: 300 mg
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
[2018-02-16] MEDS ORDERED: Benztropine TAB* 1 MG PO SCH (21:00)
[2018-02-16] MEDS ORDERED: Divalproex DR TAB(*) 500 MG PO SCH (21:00)
[2018-02-17] MEDS ORDERED: Divalproex DR TAB(*) 250 MG PO SCH (09:00)
== END 2018-02-16 16:15 | disposition home or self-care (01) | DRG 753 ==
LOC: ED 09:59 → BSU 19:34
PROVIDERS: ADMIT Psychiatry & Neurology Psychiatry; ATTEND Psychiatry & Neurology Psychiatry
PROC: 4A10X4Z Monitoring of Central Nervous Electrical Activity, External Approach (ICD-10-PCS; principal; 2018-02-10)
PROC: GZHZZZZ Group Psychotherapy (ICD-10-PCS; 2018-02-10)
DX: F31.2 Bipolar disorder, current episode manic severe with psychotic features (principal); G93.9 Disorder of brain, unspecified; G47.00 Insomnia, unspecified; F16.14 Hallucinogen abuse with hallucinogen-induced mood disorder; F17.200 Nicotine dependence, unspecified, uncomplicated; F15.94 Other stimulant use, unspecified with stimulant-induced mood disorder; Z81.8 Family history of other mental and behavioral disorders; Z91.81 History of falling; Z82.0 Family history of epilepsy and other diseases of the nervous system
CPT/HCPCS: 36415; 70551; 70552; 80053; 80061; 80164; 80307; 80320; 80329; 81003; 82607; 82746; 83036; 84443; 85025; 90847; 90853; 93005; 95816; 99222; 99231; 99232; 99233; 99238; 99284; A9270-GY; A9579; G0480; J1200; J1630; J2060

== ENCOUNTER 2018-04-25 16:17 | Emergency (ER) | payer OTHER, MEDICAID ==
--- OUTSIDE RECORDS SUMMARY | 2018-04-25 16:31 | XMS REPORT ---
:2000 External Reference #:[id number] Author Organization [facility] Address [address] [place] [address] Phone [phone] Care Team Providers Name Role Phone Rusty Mojica MD Primary Care Physician Unavailable Payers Type Date Identification Numbers Payment Provider Subscriber Health Maintenance Policy Number: [facility] Agustin Powell [facility] (O) [id number] PayID: [id number] [address] [address] [place] [address] [employer] Policy Number: [id number] Medicaid Marvin Powell Group Name: 1 1 [address] PayID: [id number] [place] [address] Problems Description No Information Social History Type Date Description Comments ETOH Use Rarely consumes alcohol Smoking Patient is a current smoker, smokes every day cigars Allergies, Adverse Reactions, Alerts Date Description Reaction Status Severity Comments 03/31/2018 NKDA active Medications Medication Date Status Form Strength Qnty SIG Indications Ordering Provider Depakote Active Tablets DR 250mg 1 by mouth Unknown 00 every morning Depakote Active Tablets DR 250mg 1 by mouth Unknown 00 every night Seroquel Active Tablets 300mg take one Unknown 00 tablet by mouth every night Ativan 00 Active Tablets 2mg take one Unknown 00 tablet by mouth at bedtime Vital Signs Date Vital Result Comment 03/31/2018 Height 70 inches 5'10" Weight 151.00 lb Heart Rate 88 /min BP Systolic Sitting 108 mmHg BP Diastolic Sitting 68 mmHg BMI (Body Mass Index) 21.7 kg/m2 Results Description No Information Procedures Date CPT Code Description Status 02/11/2018 82212 EEG Recording Awake & Drowsy Completed Encounters Type Date Location Provider CPT E/M Dx Office Visit 02/13/2018 7:00a [facility] [place] [address] R94.02 F31.9 Plan of Care Future Appointment(s):07/02/2018 1:45 pm - Edvin L[facility]pez M.D. at [facility]03/31/2018 - Edvin López M.D.R94.02 Abnormal brain scanNew Xrays:MRI Brain W/WoFollow up:3 - 4 MONTHSRecommendations:call me the day or two after your MRI scan if you do not here from us
[2018-04-25 16:43] VITALS: BP 127/81
--- NOTE | 2018-04-25 17:09 | UC ---
Bite Injury/Animal HPI - HPI Summary HPI Summary: 18 year old male presents with cat bite to right thumb. States occurred approximately 1330 today when he was trying to restrain an injured cat while he and his mother transported the cat to the vet. States that it was their cat, lived outdoors, and was not up to date with vaccinations. Unsure how cat was injured and report the cat subsequently at the vets. The vet has sent the cat for rabies testing. Mild pain at site of bite. Minimal bleeding after injury. Denies fever, chills, erythema, swelling, reduced ROM, or discharge. Tetanus UTD. - History of Current Complaint Chief Complaint: UCBiteInjury Stated Complaint: CAT BITE Time Seen by Provider: 04/25/18 16:51 Hx Obtained From: Patient Severity Currently: Mild Severity Initially: Mild Pain Intensity: 0 Onset/Duration: Sudden Onset Type of Bite: Animal - cat Character: Puncture - superficial, palmar aspect right distal thumb Aggravating Factor(s): Nothing Alleviating Factor(s): Nothing Associated Signs And Symptoms: Positive: Negative Hx of Bite: Provoked by: - restraining animal after injury Animal Available for Observation: Yes Animal Control Notified: Yes - Risk Factors Infection/Sepsis Risk Factors: Negative - Allergies/Home Medications Allergies/Adverse Reactions: Allergies Allergy/AdvReac Type Severity Reaction Status Date / Time No Known Allergies Allergy Verified 04/25/18 16:43 Home Medications: Home Medications Divalproex DR TAB(*) [Depakote DR TAB(*)] 250 mg PO BEDTIME 04/25/18 [History Confirmed 04/25/18] PMH/Surg Hx/FS Hx/Imm Hx - Additional Past Medical History Additional PMH: noncontributory Previously Healthy: Yes - Surgical History Surgical History: None - Family History Known Family History: Positive: Other - noncontributory Family History: FHx of psych problems - Social History Occupation: Unemployed Lives: With Family Alcohol Use: Rare Substance Use Type: Marijuana Substance Use Comment - Amount & Last Used: occasional Smoking Status (MU): Current Some Day Smoker Type: Cigars - Immunization History Most Recent Influenza Vaccination: None Most Recent Tetanus Shot: 2017 Most Recent Pneumonia Vaccination: None Vaccination Up to Date: Yes Review of Systems Constitutional: Negative Skin: Other - cat bite right thumb Motor: Negative Neurovascular: Negative Musculoskeletal: Negative Is Patient Immunocompromised?: No All Other Systems Reviewed And Are Negative: Yes Physical Exam Triage Information Reviewed: Yes Appearance: Well-Appearing, No Pain Distress, Well-Nourished Vital Signs: Initial Vital Signs Temp 98.3 F 04/25/18 16:38 Pulse 89 04/25/18 16:38 Resp 16 04/25/18 16:38 BP 127/81 04/25/18 16:38 Pulse Ox 100 04/25/18 16:38 Vital Signs Reviewed: Yes Respiratory: Positive: No respiratory distress Cardiovascular: Positive: Pulses Normal, Brisk Capillary Refill Musculoskeletal Exam: Normal Neurological: Positive: Alert, Other: - sensation intact Skin: Positive: Other - 2 superficial puncture wounds to palmar aspect of right distal thumb without erythema, swelling, or discharge Bite Injury Course/Dx - Course Course Of Treatment: 18 year old male with cat bite to right thumb. Wound cleansed in department. No signs of infection however with unknown overall health of cat and high risk for infection due to location will treat prophylactically with Augmentin BID x 5 days. Cat is and being sent for rabies testing by [facility] in [place]. Bite was reported to Ileana at on-call number for [facility] who states will follow up with patient on Friday morning. Wound care and warning symptoms requiring immediate medical attention reviewed with patient. Verbalizes understanding and agrees with POC. - Differential Dx/Diagnosis Provider Diagnoses: Cat bite Discharge - Sign-Out/Discharge Documenting (check all that apply): Patient Departure All imaging exams completed and their final reports reviewed: No Studies - Discharge Plan Condition: Stable Disposition: HOME Prescriptions: Amoxicillin/Clavulanate TAB* [Augmentin TAB 875*] 875 mg PO BID #10 tab Patient Education Materials: Animal Bite (ED) Referrals: Rusty Mojica MD [Primary Care Provider] - 5 Days (If needed.) Additional Instructions: Start Augmentin 1 tab twice a day for 5 days to help prevent infection. We have reported the bite to the [facility]. They should be contacting you Friday regarding their recommendations for rabies prophylaxis. If you have not heard from them by noon on Friday contact them at [phone]. Keep the wound clean and dry. Keep it covered with a Band-Aid to help prevent contamination. May take over the counter acetaminophen (Tylenol) or ibuprofen (Advil, Motrin) according to directions as needed for pain. Watch for any signs of infection including fever greater than 100.5 F, increased pain, redness that spreads, swelling, loss of use of the thumb, or pus draining from the wound. If any of these occur, seek immediate medical attention in the emergency room. - Billing Disposition and Condition Condition: STABLE Disposition: Home
== END 2018-04-25 17:25 | disposition home or self-care (01) ==
LOC: UCCORT 16:17
DX: S61.051A Open bite of right thumb without damage to nail, initial encounter (principal); W55.01XA Bitten by cat, initial encounter; Y93.89 Activity, other specified; Y92.007 Garden or yard of unspecified non-institutional (private) residence as the place of occurrence of the external cause; F17.210 Nicotine dependence, cigarettes, uncomplicated
CPT/HCPCS: 99212; G0463